=== PATIENT | female | born 1930 | race Caucasian/White ===

== ENCOUNTER 2019-08-29 13:20 | Inpatient (IN) | payer MEDICARE, OTHER ==
[~2019-08-29] VITALS: Ht 165.1 cm; Wt 68.5 kg
[2019-08-29] MEDS ORDERED: SODIUM CHLORIDE 0.9% 500 ML IV ONE (13:36)
[2019-08-29] MEDS ORDERED: MORPHINE SULFATE 4 MG/ML SYR/VIAL IV ONE (13:45)
[2019-08-29] MEDS ORDERED: ONDANSETRON HCL 4 MG/2 ML VIAL IV ONE (13:45)
[2019-08-29 14:41] LABS: Basophils # (auto) 0 10 ^3/uL (0-0.2); Basophils % (auto) 0.2 % (0.0-2.0); Eosinophils # (auto) 0.1 10 ^3/uL (0-0.8); Eosinophils % (auto) 1.5 % (0.0-7.0); Hematocrit 41.3 % (36.0-46.0); Hemoglobin 13.4 g/dL (12.2-16.2); Lymphocytes # (auto) 1.9 10 ^3/uL (0.4-5.4); Lymphocytes % (auto) 21.3 % (10.0-50.0); Mean Corpuscular Hemoglobin 29.8 pg (28.0-32.0); Mean Corpuscular Hgb Conc. 32.5 g/dL (32.0-36.0); Mean Corpuscular Volume 91.6 fL (80.0-100.0); Monocytes # (auto) 0.6 10 ^3/uL (0-1.3); Monocytes % (auto) 6.6 % (0.0-12.0); Neutrophils # (auto) 6.4 10 ^3/uL (1.6-8.6); Neutrophils % (auto) 70.4 % (37.0-80.0); Platelet Count (auto) 176 10^3/uL (140-450); Red Blood Cells 4.51 10^6/uL (4.0-5.20); Red Cell Distribution Width 14.2 % (11.8-14.3); White Blood Cell 9.1 10^3/uL (4.4-10.8)
[2019-08-29] MEDS ORDERED: HYDROmorphone HCL 2 MG/ML VL IV ONE (14:45)
[2019-08-29 14:58] LABS: Alanine Aminotransferase 13 U/L (13-56); Anion Gap 6 (5-15); BUN/Creatinine Ratio 21.5; Blood Urea Nitrogen 17 mg/dL (7-18); Calcium 7.7 mg/dL (8.5-10.1); Carbon Dioxide 22 mmol/L (21-32); Chloride 114 mmol/L (98-107); GFR African American 88 mL/min; GFR Non-African American 73 mL/min; Glucose 106 mg/dL (74-106); INR 1.06 (0.9-1.15); Partial Thromboplastin Time 23.8 sec (23.64-32.05); Potassium 3.8 mmol/L (3.5-5.1); Sodium 142 mmol/L (136-145)
[2019-08-29 15:00] LABS: Urine WBC None Seen /hpf (0 - 5)
[2019-08-29 15:02] LABS: Alkaline Phosphatase 52 U/L (45-117); Aspartate Aminotransferase 15 U/L (15-37); Bilirubin, Total 0.3 mg/dL (0.2-1.0); Total Protein 6.4 g/dL (6.4-8.2)
[2019-08-29 15:10] LABS: Urine Bacteria NONE SEEN /hpf (None Seen); Urine Blood Negative /uL (Negative); Urine Hyaline Cast FEW /lpf (0 - 2); Urine Specific Gravity 1.027 (1.001-1.035)
[2019-08-29] MEDS ORDERED: MORPHINE SULF INJ 2 MG/ML SYRINGE 1ML IV PRN (17:00)
[2019-08-29] MEDS ORDERED: NITROGLYCERIN 0.4 MG SL TAB SL PRN (17:00)
[2019-08-29] MEDS: HYDROmorphone HCL 2 MG/ML VL IV PRN ×2 (17:34→20:20)
[2019-08-29] MEDS ORDERED: MET25T PO (18:28)
[2019-08-29] MEDS ORDERED: ALPR0.25 PO (18:28)
[2019-08-29] MEDS ORDERED: CITA10TA59 PO (18:28)
[2019-08-29] MEDS ORDERED: ATOR10TA52 PO (18:28)
[2019-08-29] MEDS ORDERED: CITA-77 PO (18:28)
[2019-08-29] MEDS ORDERED: DIVA250T12 PO (18:28)
[2019-08-29] MEDS ORDERED: OMEP20TA PO (18:28)
[2019-08-29] MEDS ORDERED: ONDANSETRON HCL 4 MG/2 ML VIAL ONE (18:30)
[2019-08-29] MEDS: ONDANSETRON HCL 4 MG/2 ML VIAL IV PRN ×2 (18:30→20:15)
[2019-08-29 21:15] VITALS: BP 142/63
--- NOTE | 2019-08-29 21:15 | NUR ---
Telemetry admit from [place] admitted to Telemetry unit after SBAR received. Patient oriented to NICKY CHOPRA RN primary RN, unit, room, bed, and unit policies regarding patient care and visiting hours. Patient now on continuous telemetry monitoring, tele box # [id number] and telemetry reading on arrival to unit is sinus rhythm at 78. Patient placed on bedside oxygen, weighed by bed scale and encouraged to call if they need something. All questions and concerns addressed, patient verbalized understanding. note: wound pictures taken.
[2019-08-29 22:00] VITALS: BP 142/65
[2019-08-29] MEDS: ATORVASTATIN 20 MG TAB PO SCH (22:04)
[2019-08-29] MEDS: DOCUSATE SOD 100 MG CAP PO SCH (22:04)
[2019-08-29] MEDS: METOPROLOL TARTRATE 25 MG TAB PO SCH (22:05)
[2019-08-30] MEDS: ONDANSETRON HCL 4 MG/2 ML VIAL IV PRN (03:42)
[2019-08-30] MEDS: HYDROmorphone HCL 2 MG/ML VL IV PRN ×4 (03:43→23:34)
[2019-08-30 05:40] VITALS: BP 104/53
[2019-08-30 07:03] LABS: Cholesterol 163 mg/dL (< 200); HDL Cholesterol 60 mg/dL (40-59); LDL Cholesterol 98 mg/dL (< 100); Triglycerides 124 mg/dL (< 150)
--- NOTE | 2019-08-30 07:30 | NUR ---
Opening Shift Note Assumed care of patient, awake and alert. No S/S of distress/SOB or pain. Instructed on POC and to call for assist PRN, will continue to monitor for changes Q1hr and PRN. FAMILY AT BEDSIDE.
[2019-08-30 09:00] VITALS: BP 102/60
[2019-08-30] MEDS: CITALOPRAM HYDROBR 20 MG TAB PO SCH (09:47)
[2019-08-30] MEDS: DOCUSATE SOD 100 MG CAP PO SCH ×2 (09:47→21:35)
[2019-08-30] MEDS: PANTOPRAZOLE 40 MG TAB PO SCH (09:47)
[2019-08-30] MEDS: METOPROLOL TARTRATE 25 MG TAB PO SCH ×2 (09:48→21:35)
[2019-08-30 13:00] VITALS: BP 93/44
[2019-08-30] MEDS: HYDROcodone-ACET 5/325MG TAB PO PRN (14:05)
--- NOTE | 2019-08-30 15:10 | NUR ---
WOUND CARE NOTE: Wound care into see patient per wound care request regarding "Left hip and shoulder fracture with limited mobility. Risk for bed sore." Patient is 89 years old female with admitted for L hip and humerus Fracture s/p mechanical fall at home. Patient is resting in bed in Rm. 221A. Patient is awake, alert and able to verbalize needs. Patient is premedicated for pain by her bedside nurse prior skin examination. Patient appears to be in no pain using Gonzalez Sinha Faces Pain Scale , however mild pain noted upon turning. She need assistance in turning and repositioning and her Morteza score is 13. Skin assessment done with the assistance of patient' s nurse, ERROL Flores. Patient noted with 1x1cm pink with thin scab wound to Rt lateral lower leg which patient reported history of skin cancer. Staff cleansed wound and covered with non-adherent dressing. Intact ecchymosis also noted on patient's anterior L upper arm, area is clean and dry, left open to air. Rt. lateral calf wound and L upper arm ecchymosis are noted present on admission and photographed by bedside nurse for reference. No pressure injury noted Patient is receiving BID/PRN cleaning and application of Barrier cream to sacral, buttocks and perineum as preventative per MD order. Patient and family education given regarding skin protection measures, emphasizing the importance of pressure redistribution in pressure injury prevention. Patient's daughter verbalized understanding. Patient tolerated well, repositioned for comfort facing her Rt side, redistributed pressure points with pillows. Bed in low position with all safety precautions in placed. Family at bedside. Unable to place patient on air mattress as it is contraindicated in fracture patient. RECOMMENDATION: Nursing to continue with BID/PRN cleaning and application Barrier cream to sacral, buttocks and perineum as preventative per MD order, frequent turning and repositioning schedule as condition permits switching turning to unaffected side and back; redistribute pressure points with pillows, continue monitoring by wound care while patient is hospitalized. Addendum: 08/30/19 at 1645 by Joanie Shannon RN Amended: Links added.
[2019-08-30 17:00] VITALS: BP 97/47
--- NOTE | 2019-08-30 17:00 | NUR ---
PT TRANSFERRED TO ROOM 207. FAMILY AT BEDSIDE.
--- NOTE | 2019-08-30 17:15 | NUR ---
SURGICAL AND BLOOD CONSENTS SIGNED AND FILED.
--- NOTE | 2019-08-30 19:15 | NUR ---
OPENING SHIFT NOTE Assumed care of patient who is A&O x4. Currently on 2L NC. Reports 7/10 pain in left shoulder. Pain management options discussed with patient and family. PIV in right forearm is intact and patent. Flushed with 10ml NS. Patient is currently on bedrest with bilateral SCDs on lower extremities and sling to left arm. Patient to be kept NPO after midnight for scheduled surgery with Dr. Culp on 08/31/19 at 0615. Bed is in low locked position with side rails up x2. Call light is within reach and patient encouraged to call for assistance when needed. Will continue to monitor for changes.
--- NOTE | 2019-08-30 19:31 | NUR ---
Cardiology consult Paged Dr. Gunter to request consult for cardiac clearance prior to scheduled ORIF of left hip with Dr. Culp tomorrow a 0615. Awaiting call back.
[2019-08-30] MEDS: ATORVASTATIN 20 MG TAB PO SCH (21:35)
[2019-08-30 21:49] VITALS: BP 119/54
[2019-08-31] VITALS (11 sets, daily range): BP systolic 105–127; BP diastolic 47–64
--- NOTE | 2019-08-31 03:45 | NUR ---
Pre-op Prep Patient given CHG bath. Full linen and gown change performed. Patient reports 7 pain. Will medicate according to orders.
--- NOTE | 2019-08-31 04:00 | NUR ---
Patients O2 saturation is 85. HOB elevated, o2 increased 6L NC and continuous pulse ox. Instructed to take deep breaths through her nose.
--- NOTE | 2019-08-31 04:20 | NUR ---
O2 saturation increased to 99% O2 decreased to 2L and Spo2 sustaining at 98% Will continue to monitor.
[2019-08-31] MEDS: HYDROmorphone HCL 2 MG/ML VL IV PRN ×2 (04:59→08:37)
--- NOTE | 2019-08-31 05:00 | NUR ---
Paged Dr. Gunter to request cardiac clearance for scheduled surgery today. Awaiting call back.
--- NOTE | 2019-08-31 05:39 | NUR ---
Received call from Pre-OP. Case will be postponed due to no cardiac clearance at this time.
--- NOTE | 2019-08-31 07:15 | NUR ---
OPENING SHIFT NOTE Assumed care of patient who is A&O x4. Currently on 2L NC. Reports 3/10 pain in left shoulder. Pain management options discussed with patient and family pt refused pain medications at this time. PIV in right forearm is intact and patent. Flushed with 10ml NS. Patient is currently on bedrest with bilateral SCDs on lower extremities and sling to left arm. Patient to be kept NPO after midnight for scheduled surgery with Dr. Culp today 08/31/19 reached out to md watson regarding cardiac clearance. Bed is in low locked position with side rails up x2. Call light is within reach and patient encouraged to call for assistance when needed. Will continue to monitor for changes.
--- NOTE | 2019-08-31 07:57 | NUR ---
md watson called pt is cleared for surgery
--- NOTE | 2019-08-31 08:00 | NUR ---
called or spoke to sally RANGEL at station and OR that md watson cleared pt for surgery
--- NOTE | 2019-08-31 08:01 | NUR ---
paged md dunbar regarding clearance for surgery per answering desk they will inform md dunbar
--- NOTE | 2019-08-31 08:06 | NUR ---
asked pt if she was in pain, patient family at bedside, per pt "im okay right now"
--- NOTE | 2019-08-31 08:25 | NUR ---
pt family called fashion illustrator light stating pt is in pain, went to assess pt pt stated she is in pain
[2019-08-31] MEDS ORDERED: LIDOCAINE 1% HCL (LOCAL ANESTH.) INJ 20ML MDV ONE (08:32)
[2019-08-31] MEDS: CITALOPRAM HYDROBR 20 MG TAB PO SCH (09:20)
[2019-08-31] MEDS: DOCUSATE SOD 100 MG CAP PO SCH ×2 (09:20→22:00)
[2019-08-31] MEDS: METOPROLOL TARTRATE 25 MG TAB PO SCH ×2 (09:21→22:00)
[2019-08-31] MEDS: PANTOPRAZOLE 40 MG TAB PO SCH (09:21)
--- NOTE | 2019-08-31 09:56 | NUR ---
md montgomery anesthesiologist called stating she needs the pt echo to read by md watson prior to patient being brought down for surgery, contacted md watson awaiting response
[2019-08-31] MEDS ORDERED: TETRACAINE 1% INJ 2 ML VIAL IJ ONE (11:19)
[2019-08-31] MEDS ORDERED: MORPHINE SULF(PF) 0.5MG/ML 10ML VIAL ONE (11:21)
[2019-08-31] MEDS ORDERED: fentaNYL CITRATE 100 MCG/2 ML VL ONE (11:22)
[2019-08-31] MEDS ORDERED: ONDANSETRON HCL 4 MG/2 ML VIAL ONE (11:22)
[2019-08-31] MEDS ORDERED: SODIUM CHLORIDE LOCK 10 ML ONE (11:22)
[2019-08-31] MEDS ORDERED: MIDAZOLAM HCL 1MG/1ML-2 ML VIAL ONE ×2 (11:22→12:18)
[2019-08-31] MEDS ORDERED: PROPOFOL 10 MG/ML 20 ML IV ONE (11:22)
[2019-08-31] MEDS ORDERED: EPINEPHrine HCL 1 MG/1 ML AMP ONE (11:26)
--- NOTE | 2019-08-31 11:28 | NUR ---
family at bedside taken pt to OR hand off given to Lashonda NORTON
[2019-08-31] MEDS ORDERED: ceFAZolin 1GM/50ML 50 ML IV ONE (11:41)
[2019-08-31] MEDS ORDERED: BUPIVACAINE 0.25% INJ 50ML VIAL ONE (13:09)
[2019-08-31] MEDS ORDERED: ceFAZolin 1GM/50ML 50 ML IV SCH (13:30)
[2019-08-31] MEDS ORDERED: MEPERIDINE HCL (25 MG/ML) 1ML VIAL ONE (13:30)
[2019-08-31] MEDS ORDERED: NALOXONE HCL 0.4 MG/ML VIAL IV PRN (13:45)
[2019-08-31] MEDS ORDERED: ONDANSETRON HCL 4 MG/2 ML VIAL IV PRN (13:45)
[2019-08-31] MEDS ORDERED: HYDROmorphone HCL 2 MG/ML VL IV PRN (13:45)
[2019-08-31] MEDS ORDERED: diphenhdrAMINE HCL 50 MG/1 ML VL IV PRN (13:45)
[2019-08-31] MEDS ORDERED: MORPHINE SULFATE 4 MG/ML SYR/VIAL IV PRN (13:45)
--- NOTE | 2019-08-31 14:32 | NUR ---
received report from post op RN
--- NOTE | 2019-08-31 14:58 | NUR ---
PT BACK ON FLOOR FROM POST OP DURAMORPH PRECAUTIONS IN PLACE
[2019-08-31] MEDS: LACTATED RINGER'S 1,000 ML IV SCH ×2 (16:24→23:24)
[2019-08-31] MEDS: SODIUM CHLOR 0.9% PF (SALINE LOCK) 10ML VIAL/SYR IV SCH ×2 (16:24→22:22)
--- NOTE | 2019-08-31 16:24 | NUR ---
ROUNDED ON PATIENT FAMILY AT BEDSIDE STARTED IV FLUIDS ON PT
[2019-08-31] MEDS: ceFAZolin 1GM/50ML 50 ML IV SCH (17:11)
[2019-08-31] MEDS: HYDROcodone-ACET 5/325MG TAB PO PRN (18:57)
--- NOTE | 2019-08-31 19:30 | NUR ---
Opening Shift Note Assumed care of patient, awake and alert. No S/S of distress/SOB or pain. Family at bedside. Instructed on POC and to call for assist PRN, will continue to monitor for changes Q1hr and PRN.
--- NOTE | 2019-08-31 20:00 | NUR ---
Patient received Duramorph. Monitoring VS hourly. Patient VS are WNL. Patient resting with no s/s of pain or distress.
[2019-08-31] MEDS: ATORVASTATIN 20 MG TAB PO SCH (22:00)
[2019-09-01] VITALS (21 sets, daily range): BP systolic 108–159; BP diastolic 53–110
[2019-09-01] MEDS: ceFAZolin 1GM/50ML 50 ML IV SCH (00:05)
[2019-09-01] MEDS: ONDANSETRON HCL 4 MG/2 ML VIAL IV PRN ×2 (01:44→05:45)
[2019-09-01] MEDS: HYDROmorphone HCL 2 MG/ML VL IV PRN ×2 (01:44→05:45)
--- NOTE | 2019-09-01 04:00 | NUR ---
Patient had a moderate amount of soft brown BM. Patient cleaned. Patient tolerated well.
[2019-09-01] MEDS: SODIUM CHLOR 0.9% PF (SALINE LOCK) 10ML VIAL/SYR IV SCH ×3 (05:50→21:24)
[2019-09-01 06:44] LABS: Hemoglobin 7.5 g/dL (12.2-16.2)
[2019-09-01 07:02] LABS: Potassium 4.5 mmol/L (3.5-5.1)
[2019-09-01 07:10] LABS: Albumin 2.3 g/dL (3.4-5.0); BUN/Creatinine Ratio 37.8; Bilirubin, Total 0.4 mg/dL (0.2-1.0); Total Protein 5.4 g/dL (6.4-8.2)
--- NOTE | 2019-09-01 07:10 | NUR ---
OPENING SHIFT NOTE Assumed care of patient who is A&O x2. Currently on 3L NC. Reports 0/10 pain in left shoulder. PIV in right forearm is intact and patent. Flushed with 10ml NS. Patient is currently on bedrest with bilateral SCDs on lower extremities and sling to left arm. Bed is in low locked position with side rails up x2. Call light is within reach and patient encouraged to call for assistance when needed. Will continue to monitor for changes
--- NOTE | 2019-09-01 08:00 | NUR ---
ASSISTED AIDE IN CHANGING PT NOTED SMALL BM LOOSE
[2019-09-01] MEDS: LACTATED RINGER'S 1,000 ML IV SCH ×2 (09:24→19:24)
[2019-09-01] MEDS: PANTOPRAZOLE 40 MG TAB PO SCH (09:39)
[2019-09-01] MEDS: CITALOPRAM HYDROBR 20 MG TAB PO SCH (09:39)
[2019-09-01] MEDS: HYDROcodone-ACET 5/325MG TAB PO PRN (09:39)
[2019-09-01] MEDS: METOPROLOL TARTRATE 25 MG TAB PO SCH ×2 (09:39→21:24)
[2019-09-01] MEDS: ENOXAPARIN SOD 40 MG/0.4 ML SYRINGE SC SCH (09:40)
[2019-09-01] MEDS: DOCUSATE SOD 100 MG CAP PO SCH ×2 (09:40→21:24)
--- NOTE | 2019-09-01 10:03 | NUR ---
MD RANGEL ROUNDED ON PATIENT PT DAUGHTER AND SON AT BEDSIDE DURING ROUNDING, BROUGHT PT ALTERED MENTATION TO HIS ATTENTION PER MD, PT IS TO BE NPO HOLD ALL PO MEDS AND GIVE NOTHING THAT CAN SEDATE PATIENT
[2019-09-01 11:05] LABS: Hemoglobin 7.2 g/dL (12.2-16.2)
[2019-09-01 11:09] LABS: Hematocrit 21.4 % (36.0-46.0)
--- NOTE | 2019-09-01 11:20 | NUR ---
assessment Patient is a 89 year old female who is still loopy from medications given during and after surgery per daughter Bonnie. Prior to admission patient lived home with family and functioned with family assistance. Patients PCP is in [place]. Patient has a shower chair, fww, and a cane for home use. Patient has an advanced directive and POA. Per Bonnie patient was walking to the mail box and lost her balance and fell. Patient has a fractured hip and shoulder. Per Bonnie she is requesting [facility] on discharge. I informed Bonnie she has a right to speak to a social economist regarding all care. I informed Bonnie she has a right to participate in any and all discharge planning. Bonnie verbalized understanding and agreed to discharge plan to Rehab. Addendum: 09/01/19 at 1130 by Anna CELESTIN Amended: Links added.
--- NOTE | 2019-09-01 11:28 | NUR ---
CALLED MD RANGEL TO REPORT NEW HEMOGLOBIN OF 7.2 NEW ORDER TO TRANSFUSE 1 UNIT PRBC
--- NOTE | 2019-09-01 13:00 | NUR ---
LOOSE STOOL NOTED ASSISTED AIDE IN CHANGING PT
[2019-09-01] MEDS ORDERED: EPOETIN ALFA 10,000 UNIT/1 ML VIAL SC ONE (14:45)
[2019-09-01] MEDS ORDERED: KETOROLAC TROMETH 15 mg/ml 1ML VL IV PRN (17:00)
--- NOTE | 2019-09-01 17:40 | NUR ---
D/C planning Per SS consult for SNF Placement. Per SW II Anna patient family requesting [facility]. Faxed order to [facility]. Per training representative at [facility] patient is not register with them therefore they are unable to accept patient. Spoke to patient daughters Zulma and Stephenie at bedside regarding placement. Per Zulma they understand and they will be looking for a placement in [facility]. Advised Zulma patient does not have transportation benefits. Zulma stated they are willing to pay transportation upon d/c day. Zulma Ph:) and Stephenie verbalize understanding d/c plan. RN Lili was informed.
--- NOTE | 2019-09-01 18:18 | NUR ---
PT ABLE TO OPEN EYES AND RESPOND TO QUESTIONS APPEARS MORE ALERT AND STATES HER PAIN HAS GONE DOWN, PT DAUGHTERS AT BEDSIDE
--- NOTE | 2019-09-01 19:55 | NUR ---
ASSUMED CARE, PT. AWAKE, OPEN ND CLOSE HER EYES, RELATIVES AT BEDSIDE, DRESSING ON LT. HIP DRY AND INTACT, 2ND UNIT OF PRBC INFUSING WELL, V/S STABLE, NOT IN DISTRESS.
[2019-09-01] MEDS: ATORVASTATIN 20 MG TAB PO SCH (21:24)
--- NOTE | 2019-09-01 21:25 | NUR ---
BLOOD TRANSFUSION COMPLETED, V/S STABLE, NO BLOOD TRANSFUSION REACTION NOTED, REPOSITIONED PT. NO SOB.
[2019-09-02 01:59] VITALS: BP 163/79
[2019-09-02] MEDS: LACTATED RINGER'S 1,000 ML IV SCH ×2 (03:43→16:44)
[2019-09-02 05:00] VITALS: BP 134/78
[2019-09-02] MEDS: SODIUM CHLOR 0.9% PF (SALINE LOCK) 10ML VIAL/SYR IV SCH ×3 (06:07→21:37)
--- NOTE | 2019-09-02 07:15 | NUR ---
Opening Shift Note Assumed care of patient, pt awake and alert to self. pt has o2 at 4L NC . No S/S of distress/SOB or pain. call light within reach, bed in lowest position,bed rails up x2. bed alarm on and fall precautions in place. will continue to monitor for changes Q1hr and PRN.
[2019-09-02 08:21] VITALS: BP 135/60
--- NOTE | 2019-09-02 08:28 | NUR ---
ROUNDING MD Parisa RANGEL AT BEDSIDE. MD AWAITING UPDATED HGB RESULTS AND WOULD LIKE TO SPEAK TO FAMILY WHEN THEY ARRIVE . ALL QUESTIONS AND CONCERNS ADDRESSED AT THIS TIME.
--- NOTE | 2019-09-02 08:30 | NUR ---
SPEECH PATHOLOGIST AT BEDSIDE. ATTEMPTING TO PERFORM SWALLOW EVALUATION
--- NOTE | 2019-09-02 08:47 | NUR ---
UNABLE TO DETERMINE IF PATIENT IS SAFE FOR SWALLOW, PATIENT SPIT OUT ALL BOLUS ATTEMPTS DUE TO CONFUSION. NURSING NOTIFIED.
[2019-09-02] MEDS: CITALOPRAM HYDROBR 20 MG TAB PO SCH (09:19)
[2019-09-02] MEDS: METOPROLOL TARTRATE 25 MG TAB PO SCH ×2 (09:20→21:37)
[2019-09-02] MEDS: DOCUSATE SOD 100 MG CAP PO SCH ×2 (09:20→21:37)
--- NOTE | 2019-09-02 10:30 | NUR ---
ATTEMPTED TO TRANSFER PATIENT OUT OF BED. PATIENT BECAME COMBATIVE AND TREATMENT WAS DISCONTINUED.
[2019-09-02] MEDS: PANTOPRAZOLE 40 MG/10 ML VIAL INJ IV SCH (10:53)
[2019-09-02] MEDS: ENOXAPARIN SOD 40 MG/0.4 ML SYRINGE SC SCH (10:53)
[2019-09-02 11:41] LABS: Hematocrit 27.9 % (36.0-46.0); Hemoglobin 9.5 g/dL (12.2-16.2)
[2019-09-02 13:00] VITALS: BP 141/60
--- NOTE | 2019-09-02 14:32 | NUR ---
ROUNDING MD JENKINS AT BEDSIDE. ATTEMPTING SWALLOW EVALUATION. PT UNCOOPERATIVE AT THIS TIME. NEW ORDERS RECEIVED.
--- NOTE | 2019-09-02 14:48 | NUR ---
PT OFF UNIT FOR PROCEDURE
--- NOTE | 2019-09-02 15:01 | NUR ---
PT BACK TO UNIT FROM PROCEDURE
[2019-09-02 16:46] VITALS: BP 139/73
[2019-09-02] MEDS: MORPHINE SULF INJ 2 MG/ML SYRINGE 1ML IV PRN ×2 (18:59→23:21)
--- NOTE | 2019-09-02 19:40 | NUR ---
assumed care, pt. awake, more alert at this time, relative at bedside, no c/o pain, not in distress.
[2019-09-02] MEDS: ATORVASTATIN 20 MG TAB PO SCH (21:37)
[2019-09-02 22:00] VITALS: BP 135/70
--- NOTE | 2019-09-02 23:20 | NUR ---
pt. c/o rt. hip pain, morphine 1mg. given iv as ordered.
--- NOTE | 2019-09-02 23:51 | NUR ---
no c/o pain at this time.
[2019-09-03] MEDS: LACTATED RINGER'S 1,000 ML IV SCH ×3 (01:26→21:24)
[2019-09-03 04:59] VITALS: BP 139/79
[2019-09-03] MEDS: SODIUM CHLOR 0.9% PF (SALINE LOCK) 10ML VIAL/SYR IV SCH ×3 (05:46→22:21)
[2019-09-03 06:17] LABS: Hematocrit 26.4 % (36.0-46.0); Hemoglobin 8.6 g/dL (12.2-16.2)
[2019-09-03 06:41] LABS: Calcium 8.4 mg/dL (8.5-10.1); Potassium 3.6 mmol/L (3.5-5.1)
[2019-09-03 06:44] LABS: BUN/Creatinine Ratio 42.9
[2019-09-03] MEDS: CITALOPRAM HYDROBR 20 MG TAB PO SCH (09:11)
[2019-09-03] MEDS: PANTOPRAZOLE 40 MG/10 ML VIAL INJ IV SCH (09:11)
[2019-09-03] MEDS: DOCUSATE SOD 100 MG CAP PO SCH ×2 (09:11→22:21)
[2019-09-03] MEDS: ENOXAPARIN SOD 40 MG/0.4 ML SYRINGE SC SCH (09:11)
[2019-09-03] MEDS: METOPROLOL TARTRATE 25 MG TAB PO SCH ×2 (09:11→22:23)
--- NOTE | 2019-09-03 09:15 | NUR ---
ROUNDDEBBIE JENKINS AT BEDSIDE. PT ALERT AND ORIENTED X3. PT ABLE TO SWALLOW. NEW ORDERS RECEIVED.
[2019-09-03 09:44] VITALS: BP 139/70
--- NOTE | 2019-09-03 10:32 | NUR ---
Opening Shift Note Assumed care of patient, awake and alert. PT c/o anxiety. fall precautions in place, call light within reach, bed in lowest position, and bed alarm on. Instructed on POC and to call for assist PRN, will continue to monitor for changes Q1hr and PRN. Addendum: 09/03/19 at 1036 by ANJEL PHELPS RN RN CORRECT TIME 1559
[2019-09-03] MEDS: ALPRAZolam 0.25 MG TAB PO PRN ×2 (11:31→22:23)
[2019-09-03 13:00] VITALS: BP 137/73
[2019-09-03] MEDS: MORPHINE SULF INJ 2 MG/ML SYRINGE 1ML IV PRN ×2 (13:13→22:23)
--- NOTE | 2019-09-03 13:38 | NUR ---
INCENTIVE SPIROMETRY TEACHING COMPLETED. PT VERBALIZED UNDERSTANDING AND RETURNED DEMONSTRATION
[2019-09-03 16:21] VITALS: BP 147/70
--- NOTE | 2019-09-03 19:10 | NUR ---
opening note pt A&O to self time and place. family is currently at bedside. pt is on bedrest due to hip surgery. a sling is in place at the left shoulder. winston is in place, and is patent without kinks and draining to gravity. expiratory wheezing heard upon auscultation.
[2019-09-03 22:00] VITALS: BP 145/81
[2019-09-03] MEDS: ATORVASTATIN 20 MG TAB PO SCH (22:22)
[2019-09-04 05:00] VITALS: BP 148/70
[2019-09-04] MEDS: HYDROcodone-ACET 5/325MG TAB PO PRN ×3 (05:48→21:35)
[2019-09-04] MEDS: SODIUM CHLOR 0.9% PF (SALINE LOCK) 10ML VIAL/SYR IV SCH ×3 (06:00→21:34)
[2019-09-04] MEDS: ALPRAZolam 0.25 MG TAB PO PRN ×2 (06:54→21:08)
--- NOTE | 2019-09-04 07:10 | NUR ---
closing note pt resting in a slightly right lateral position with eyes open. patient is A&Ox4 at this time. respirations are even and nonlabored on 3lnc. bed is in low locked position with call light within reach.
[2019-09-04] MEDS: LACTATED RINGER'S 1,000 ML IV SCH (07:24)
[2019-09-04 09:00] VITALS: BP 142/74
[2019-09-04] MEDS: DOCUSATE SOD 100 MG CAP PO SCH ×2 (10:00→21:35)
[2019-09-04] MEDS: CITALOPRAM HYDROBR 20 MG TAB PO SCH (11:17)
[2019-09-04] MEDS: PANTOPRAZOLE 40 MG/10 ML VIAL INJ IV SCH (11:18)
[2019-09-04] MEDS: METOPROLOL TARTRATE 25 MG TAB PO SCH ×2 (11:19→21:34)
[2019-09-04] MEDS: ENOXAPARIN SOD 40 MG/0.4 ML SYRINGE SC SCH (11:19)
[2019-09-04 13:00] VITALS: BP 127/67
--- NOTE | 2019-09-04 15:46 | NUR ---
Nutrition Assessment Notes Please refer to link for full assessment notes. Est energy needs: 8852-5745 kcals (23-25 kcal/kgBW) Est protein needs: 65-71 gms/day (1.0-1.1 gm/kgBW) Will continue to monitor and reassess prn. Addendum: 09/04/19 at [address] Amended: Links added.
[2019-09-04 16:49] VITALS: BP 147/72
--- NOTE | 2019-09-04 16:50 | NUR ---
D/C Planning F[facility]ed orders to [facility]. Placed called to [facility] spoke to Bonnie. Per Bonnie with [facility] they will not have beds until Wednesday. Placed followed up [facility] 14[facility]. Received a called from De[facility] with [facility] stating that they are willing to accept patient however they will follow up with me on Wednesday morning after they speak to patient. Informed patient daughter Bonnie. Will follow up.
--- NOTE | 2019-09-04 19:00 | NUR ---
Opening Shift Note Assumed care of patient, awake and alert. No S/S of distress/SOB or pain. Instructed on POC and to call for assist PRN, will continue to monitor for changes Q1hr and PRN.
[2019-09-04] MEDS: ATORVASTATIN 20 MG TAB PO SCH (21:34)
[2019-09-04 22:00] VITALS: BP 156/83
--- NOTE | 2019-09-04 22:34 | NUR ---
Patient was due for blood pressure reassessment but had refused earlier before falling asleep. Patient stated not to wake her up if she is asleep.
[2019-09-05] VITALS (7 sets, daily range): BP systolic 128–168; BP diastolic 62–84
[2019-09-05] MEDS: ALPRAZolam 0.25 MG TAB PO PRN ×2 (03:13→11:38)
[2019-09-05] MEDS: HYDROcodone-ACET 5/325MG TAB PO PRN ×2 (07:30→12:15)
--- NOTE | 2019-09-05 07:41 | NUR ---
Opening Note Assumed pt care from [facility] nurse. Pt is a/ox4 with no s/s of distress or SOB. Pt is currently sitting upright in bed with moderate complaint of L hip pain, 02/04. Discussed available pain medication. Dressing to L hip is clean, dry and intact. L arm is in sling. Funes catheter is present, draining to gravity and free of kinks. Discussed POC with pt and pending d/c to SNF. Safety measures maintained with call light within reach, bed in lowest position and side rails up. Will continue to monitor.
--- NOTE | 2019-09-05 08:39 | NUR ---
Elevated BP Reported BP of 168/76 with a HR of 82 reported. Reassessed pt; currently no complaints at this time, current BP is 128/62 with a HR of 93. Will continue to monitor.
[2019-09-05] MEDS: METOPROLOL TARTRATE 25 MG TAB PO SCH (09:11)
[2019-09-05] MEDS: ENOXAPARIN SOD 40 MG/0.4 ML SYRINGE SC SCH (09:11)
[2019-09-05] MEDS: CITALOPRAM HYDROBR 20 MG TAB PO SCH (09:12)
[2019-09-05] MEDS: DOCUSATE SOD 100 MG CAP PO SCH (09:12)
[2019-09-05] MEDS ORDERED: PANTOPRAZOLE 40 MG TAB PO SCH (10:00)
--- NOTE | 2019-09-05 10:07 | NUR ---
Down Grade to MS Pt downgraded to MS. Tele box removed and sent back to ICU; staff made aware.
--- NOTE | 2019-09-05 11:42 | NUR ---
D/C Planning Per pt's daughter, Zulma. Pt has been accepted into [facility] with the accepting MD Dr Martinez. Left message with SS to update. Pt is requesting transportation.
--- NOTE | 2019-09-05 13:03 | NUR ---
D/C Wound Photos Taken for Reference Photos taken for reference.
--- NOTE | 2019-09-05 13:10 | NUR ---
Elevated BP Reported BP of 164/73 with a HR of 78 reported. Reassessed pt, currently asymptomatic with a BP of 136/62 and a HR of 85. Will continue to monitor.
[2019-09-05] MEDS: SODIUM CHLOR 0.9% PF (SALINE LOCK) 10ML VIAL/SYR IV SCH (13:24)
--- NOTE | 2019-09-05 14:09 | NUR ---
Attempted to Call Report Attempted to call report to [facility], . Spoke with staff there. Facility unable to take report due to orders not having been faxed to facility. Will notify public health social worker. Fax number is [phone]
--- NOTE | 2019-09-05 14:14 | NUR ---
D/C Planning Placed [facility] . Per Hannah with [facility] patient has been accepted to room [address] Martinez. Hannah advised me to give report . Transportation has been arrange between 16:30-17:30 with [facility] transport via [employer]. Advised patient daughter Bonnie transportation will be [id number]. Bonnie verbalize understanding d/c plan. ERROL Irving was informed of d/c plan.
--- NOTE | 2019-09-05 14:25 | NUR ---
Faxed D/C Orders to [facility] Per Hannah at [place], , need d/c orders to accept report for pt transfer. Faxed over orders to [phone]. Will attempt to call for report.
--- NOTE | 2019-09-05 14:35 | NUR ---
Called to Give Report Report given to Michaela, RN [phone]. All questions were answered. Staff is aware that pt will be picked up from facility at [phone].
[2019-09-05] MEDS ORDERED: levoFLOXacin 500 MG TAB PO ONE (16:15)
--- NOTE | 2019-09-05 16:25 | NUR ---
O2 Saturation Pt is 92% while on RA. No s/s of distress.
--- NOTE | 2019-09-05 17:20 | NUR ---
IVs D/C'ed IVs to pt's R FA removed fully intact. Sites are asymptomatic. Pressure was applied to sites for 30 minutes with gauze and then wrapped in coban. Pt instructed to keep dressings on for 30 minutes; pt verbalized understanding.
--- NOTE | 2019-09-05 17:49 | NUR ---
Pt D/C'ed off Unit Via [facility] Pt d/c'ed off unit via stretcher by [facility]. All questions were answered for transportation. IVs were d/c'ed prior to transfer. Pt is a/ox4 with no s/s of distress or SOB. Pt provided all d/c paperwork and all questions were answered. Pt and pt's daughter took all of pt's belongings. Pt transferred with winston catheter.
== END 2019-09-05 17:30 | DRG 480 ==
LOC: ER 13:20 → EDBD 13:20 → TELE 13:21 → TELE-CENTR 21:14 → CENTRAL 09-05 09:44
PROVIDERS: ADMIT Nurse Practitioner Acute Care; ATTEND Internal Medicine
PROC: 0QS704Z Reposition Left Upper Femur with Internal Fixation Device, Open Approach (ICD-10-PCS; principal; 2019-08-31 11:51)
PROC: 30233N1 Transfusion of Nonautologous Red Blood Cells into Peripheral Vein, Percutaneous Approach (ICD-10-PCS; 2019-09-01)
DX: M84.452A Pathological fracture, left femur, initial encounter for fracture (principal); G93.41 Metabolic encephalopathy; E44.0 Moderate protein-calorie malnutrition; N39.0 Urinary tract infection, site not specified; M84.422A Pathological fracture, left humerus, initial encounter for fracture; E78.5 Hyperlipidemia, unspecified; F32.9 Major depressive disorder, single episode, unspecified; I10 Essential (primary) hypertension; D64.9 Anemia, unspecified; F41.9 Anxiety disorder, unspecified; Z66 Do not resuscitate; Z90.710 Acquired absence of both cervix and uterus; Z68.25 Body mass index [BMI] 25.0-25.9, adult
CPT/HCPCS: 36415; 51702; 70450; 71045; 73030; 73501; 73502; 76000; 80048; 80053; 80061; 80164; 81001; 82962; 84443; 85014; 85018; 85025; 85610; 85730; 86850; 86900; 86901; 86920; 93005; 93306; 96361; 96374; 96375; 96376; 97110; 97116; 97163; 97530; A4565; C1713; C1769; C9113; G0378; J0171; J0690; J0885; J2001; J2250; J2405; J2704; J3490

== ENCOUNTER 2020-05-20 17:49 | Emergency (ER) | payer MEDICARE, OTHER ==
[~2020-05-20] VITALS: Ht 160 cm; Wt 49.0 kg
[~2020-05-20 17:49] MED LIST: ALPR0.25 PO; ATOR10TA52 PO; CITA-77 PO; CITA10TA59 PO; DIVA250T12 PO; OMEP20TA PO
[2020-05-20 19:45] VITALS: BP 151/94
== END 2020-05-21 02:03 | disposition home or self-care (01) ==
LOC: ER 17:49
DX: J06.9 Acute upper respiratory infection, unspecified (principal); I10 Essential (primary) hypertension; E78.5 Hyperlipidemia, unspecified; Z90.710 Acquired absence of both cervix and uterus; Z20.828 Contact with and (suspected) exposure to other viral communicable diseases
CPT/HCPCS: 36415; 71045; 85379; 87426; 99284; C9803; U0003

== ENCOUNTER 2020-08-24 11:54 | Emergency (ER) | payer MEDICARE, OTHER ==
[~2020-08-24] VITALS: Ht 162.6 cm; Wt 49.9 kg
[~2020-08-24 11:54] MED LIST changes: -CITA10TA59 PO; +CITA10TA8 PO
[2020-08-24 11:56] VITALS: BP 164/79
[2020-08-24] MEDS ORDERED: NEOMYCIN-BACITRACIN-POLYM UNITDOSE PKG TOP OINT TOP ONE (13:00)
== END 2020-08-24 13:33 | disposition home or self-care (01) ==
LOC: ER 11:54
DX: S90.32XA Contusion of left foot, initial encounter (principal); S51.002A Unspecified open wound of left elbow, initial encounter; E78.5 Hyperlipidemia, unspecified; I10 Essential (primary) hypertension; R51.9 Headache, unspecified; Z90.710 Acquired absence of both cervix and uterus; W18.2XXA Fall in (into) shower or empty bathtub, initial encounter; Y93.89 Activity, other specified; Y92.091 Bathroom in other non-institutional residence as the place of occurrence of the external cause; Y99.8 Other external cause status
CPT/HCPCS: 70450; 73630